=== PATIENT | male | born 1980 | race Caucasian/White ===

== ENCOUNTER 2017-10-30 10:48 | Emergency (ER) | payer MEDICAID ==
[~2017-10-30] VITALS: Ht 180.3 cm; Wt 82.0 kg
[2017-10-30] MEDS ORDERED: LIDO20SO16 PO (12:06)
[2017-10-30] MEDS ORDERED: PENI250T2 PO (12:06)
[2017-10-30 12:50] VITALS: BP 125/70
== END 2017-10-30 12:51 | disposition home or self-care (01) ==
LOC: ER 10:49
DX: J02.9 Acute pharyngitis, unspecified (principal); R50.9 Fever, unspecified; R13.10 Dysphagia, unspecified
CPT/HCPCS: 87081; 87880; 99284

== ENCOUNTER 2019-01-04 04:59 | Emergency (ER) | payer MEDICAID ==
[~2019-01-04] VITALS: Ht 180.3 cm; Wt 84.1 kg
[~2019-01-04 04:59] MED LIST: LIDO20SO16 PO
[2019-01-04] MEDS ORDERED: dexamethasone sod phosphate 10mg/ml inj PO STA (05:18)
[2019-01-04] MEDS ORDERED: pantoprazole 40mg Tablet.DR PO STA (05:20)
[2019-01-04] MEDS ORDERED: LIDOcaine Viscous 15ml cup MM ONE (05:20)
[2019-01-04] MEDS ORDERED: mag hydrox/Alum hydrox/simeth 30ml oral suspension PO ONE (05:20)
[2019-01-04] MEDS ORDERED: cephalexin 250mg capsule PO ONE (05:20)
[2019-01-04] MEDS ORDERED: CEPH500C5 PO (05:41)
[2019-01-04] MEDS ORDERED: OMEP40CA13 PO (05:41)
[2019-01-04 05:56] VITALS: BP 142/89
== END 2019-01-04 05:58 | disposition home or self-care (01) ==
LOC: ER 04:59
DX: K12.2 Cellulitis and abscess of mouth (principal); Z79.2 Long term (current) use of antibiotics; Z79.899 Other long term (current) drug therapy
CPT/HCPCS: 99284; J1100

== ENCOUNTER 2020-07-06 02:56 | Emergency (ER) | payer MEDICAID ==
[~2020-07-06] VITALS: Ht 180.3 cm; Wt 185.0 kg
[2020-07-06] MEDS ORDERED: propofol 10mg/ml 20ml vial IV ONE (03:15)
[2020-07-06 05:17] VITALS: BP 151/96
== END 2020-07-06 05:22 | disposition home or self-care (01) ==
LOC: ER 02:57
DX: S43.084A Other dislocation of right shoulder joint, initial encounter (principal); Z79.899 Other long term (current) drug therapy; X50.1XXA Overexertion from prolonged static or awkward postures, initial encounter; Y93.89 Activity, other specified; Y92.89 Other specified places as the place of occurrence of the external cause; Y99.8 Other external cause status
CPT/HCPCS: 23650; 73020; 73030; 94799; 99152; 99285; J2704; 94760

== ENCOUNTER 2020-10-25 07:59 | Emergency (ER) | payer MEDICAID ==
[~2020-10-25] VITALS: Ht 180.3 cm; Wt 8.4 kg
[2020-10-25 08:24] VITALS: BP 175/100
== END 2020-10-25 19:53 | disposition left against medical advice (07) ==
LOC: ER 08:00
DX: M25.562 Pain in left knee (principal); Z53.21 Procedure and treatment not carried out due to patient leaving prior to being seen by health care provider
CPT/HCPCS: 73564

== ENCOUNTER 2024-02-27 05:26 | Emergency (ER) | payer MEDICAID ==
[~2024-02-27] VITALS: Ht 180.3 cm; Wt 83.3 kg
[2024-02-27 05:28] VITALS: TEMP 98.1
[2024-02-27] MEDS: HYDROcodone/acetaminophen 10/325mg tab PO ONE (07:58)
[2024-02-27] MEDS: naproxen 500mg tablet PO ONE (07:59)
[2024-02-27] MEDS ORDERED: BUPIVAcaine/PF 2.5 mg/ml (0.25%) 30ml vial IJ ONE (08:15)
[2024-02-27 08:42] LABS: BASOPHILS % (AUTO) 0.3 % (0-1); EOSINOPHILS % (AUTO) 0.1 % (0-6); HEMATOCRIT 39.5 % (42.0-52.0); HEMOGLOBIN 13.7 g/dl (14.0-17.9); LYMPHOCYTES # (AUTO) 1.5 X10'3 (1.1-4.8); LYMPHOCYTES % (AUTO) 12.4 % (21-51); MEAN CORPUSCULAR HEMOGLOBIN 30.2 PG (27.0-31.0); MEAN CORPUSCULAR HGB CONC 34.8 g/dL (33.0-36.5); MEAN CORPUSCULAR VOLUME 86.7 FL (78-98); MEAN PLATELET VOLUME 7.9 FL (7.4-10.4); MONOCYTES # (AUTO) 0.4 X10'3 (0-0.9); MONOCYTES % (AUTO) 3.5 % (2-12); NEUTROPHILS # (AUTO) 10.4 X10'3 (1.8-7.7); NEUTROPHILS % (AUTO) 83.7 % (42-75); PLATELET COUNT 351 X10'3 (140-440); RED BLOOD COUNT 4.56 X10'6 (4.70-6.10); RED CELL DISTRIBUTION WIDTH 12.4 % (11.5-14.5); WHITE BLOOD COUNT 12.4 X10'3 (4.5-11.0)
[2024-02-27 09:19] LABS: ALBUMIN 3.8 G/DL (3.4-5.0); ANION GAP 7 (8-16); BLOOD UREA NITROGEN 10 MG/DL (7-18); BUN/CREATININE RATIO 13.2 (10.0-20.0); CALCIUM 9.4 MG/DL (8.5-10.1); CHLORIDE 105 MMOL/L (99-107); CREATININE 0.76 MG/DL (0.60-1.10); GLUCOSE 110 MG/DL (70-104); MAGNESIUM 2.8 MG/DL (1.5-2.4); POTASSIUM 3.7 MMOL/L (3.5-5.1); SODIUM 139 MMOL/L (135-145); eCRCL 135 ML/MIN; eGFR > 90 ML/MIN
[2024-02-27] MEDS: propofol 10mg/ml 20ml vial IV ONE (09:41)
[2024-02-27] MEDS: LIDOcaine 1% 30ml preserv. free vial IJ ONE (09:42)
[2024-02-27] MEDS: BUPIVAcaine/PF 2.5mg/ml (0.25%) 10ml vial IJ ONE (09:42)
[2024-02-27] MEDS ORDERED: DOXY-224 PO (10:50)
[2024-02-27] MEDS ORDERED: RIFA300C65 PO (10:50)
[2024-02-27] MEDS: rifampin 300mg capsule PO STA (10:51)
[2024-02-27] MEDS: DOXYCYCLINE 100MG CAPSULE PO STA (10:51)
[2024-02-27 10:54] VITALS: BP 106/66; PULSE 99; RESP 14; O2SAT 99
== END 2024-02-27 10:55 | disposition home or self-care (01) ==
LOC: ER 05:27
DX: S43.084A Other dislocation of right shoulder joint, initial encounter (principal); L03.114 Cellulitis of left upper limb; Z79.899 Other long term (current) drug therapy; X58.XXXA Exposure to other specified factors, initial encounter; Y93.89 Activity, other specified; Y92.89 Other specified places as the place of occurrence of the external cause; Y99.8 Other external cause status
CPT/HCPCS: 23650; 36415; 73020; 73030; 80048; 83735; 85025; 99152; 99153; 99285; J7030; A4565